=== PATIENT | female | born 1995 | race African-American/Black ===

== ENCOUNTER 2020-04-01 11:58 | Observation (INO) ==
[2020-04-01 12:58] LABS: Basophils % 0.3 % (0.0-0.8); Eosinophils # 0.1 10*3/uL (0.0-0.87); Eosinophils % 0.7 % (0.00-10.9); Hematocrit 36.1 VOL% (35.7-47.0); Hemoglobin 12.4 GM/DL (12.0-16.0); Immature Granulocytes % 0.3 %; Immature Granulocytes Absolute 0.03 #; Lymphocytes # 2.7 10*3/uL (1.4-4.0); Lymphocytes % 26.1 % (21.3-54.2); Mean Corpuscular HGB Conc 34.3 GM/DL (32-36); Mean Corpuscular Volume 89.1 FL (87-102); Mean Platelet Volume 10.2 FL (9.6-12.0); Monocytes % 8.8 % (1.7-12.7); Neutrophils % 63.8 % (38.7-73.9); Platelet Count 260 T/CUMM (130-400); Red Blood Count 4.05 MC/CUMM (3.8-5.5); Red Cell Distribution Width 11.2 % (9.3-17.3); White Blood Count 10.2 T/CUMM (4-12)
[2020-04-01 13:16] LABS: Calcium 8.6 MG/DL (8.5-10.1)
[2020-04-01 13:17] LABS: Bilirubin,Urine Negative (Negative); Blood, Urine Small mg/dL (Negative); Glucose,Urine (UA) >=500 mg/dL (Negative); Hyaline Casts,Urine 4 /LPF (0-3); Ketones,Urine Negative (Negative); Mucus,Urine Occasional /LPF (Occasional); Nitrite,Urine Negative (Negative); Protein,Urine >=500 MG/DL; RBC,Urine 32 /HPF (0-4); Squamous Epithelial Cell,Urine Occasional /HPF (0-10); Urine Appearance CLEAR (Clear); Urine Color Yellow (Yellow); Urine Specific Gravity 1.027 (1.001-1.035); Urine Urobilinogen < 2.0 EU/DL (0.2-1.0); WBC,Urine 4 /HPF (0-6)
[2020-04-01] MEDS ORDERED: SODIUM CHLORIDE 0.9% 1,000 ML IV STA (13:31)
[2020-04-01] MEDS ORDERED: INSULIN REGULAR 100 UNIT/ML IV ONE (13:32)
[2020-04-01] MEDS ORDERED: HYDROmorphone 2 MG/1 ML VIAL ONE (14:58)
[2020-04-01] MEDS ORDERED: ONDANSETRON 4 MG/2 ML VIAL ONE (14:58)
[2020-04-01] MEDS ORDERED: HYDROmorphone 2 MG/1 ML VIAL IV STA (14:59)
[2020-04-01] MEDS ORDERED: ONDANSETRON 4 MG/2 ML VIAL IV STA (14:59)
[2020-04-01] MEDS ORDERED: ACETAMINOPHEN 325 MG TABLET PO PRN (15:23)
[2020-04-01] MEDS ORDERED: GLUCAGON 1 MG VIAL IM PRN ×2 (15:23→17:11)
[2020-04-01] MEDS ORDERED: DEXTROSE 50% 25 GM/50 ML VIAL IV PRN ×2 (15:23→17:11)
[2020-04-01] MEDS ORDERED: KETOROLAC 15 MG/1 ML VIAL IV PRN (15:23)
[2020-04-01] MEDS ORDERED: ONDANSETRON 4 MG/2 ML VIAL IV PRN (15:23)
[2020-04-01] MEDS ORDERED: MAGNESIUM SULF RIDER 2 GM in PREMIX 1 EACH IV ONE (16:50)
[2020-04-01] MEDS: LACTATED RINGERS 1,000 ML IV SCH (17:35)
[2020-04-01] MEDS: INSULIN REGULAR 100 UNIT/ML SUBCUT SCH ×2 (17:35→22:27)
[2020-04-01] MEDS: SODIUM CHLORIDE 0.9% 1,000 ML IV SCH (17:49)
[2020-04-01] MEDS ORDERED: INSULIN LISPRO 100 UNIT/ML SUBCUT SCH (18:00)
[2020-04-01] MEDS ORDERED: INSULIN GLARGINE 100 UNIT/ML SUBCUT SCH (21:00)
[2020-04-01] MEDS: VANCOMYCIN INJ 1,000 MG in SODIUM CHLORIDE 0.9% 250 ML IV SCH (22:24)
[2020-04-01] MEDS: MORPHINE 4 MG/1 ML VIAL IV PRN (22:29)
[2020-04-02] MEDS ORDERED: MAGNESIUM SULF RIDER 4 GM in PREMIX 1 EACH IV PRN
[2020-04-02] MEDS ORDERED: MAGNESIUM SULF RIDER 2 GM in PREMIX 1 EACH IV PRN
[2020-04-02 05:41] LABS: Basophils % 0.4 % (0.0-0.8); Eosinophils # 0.1 10*3/uL (0.0-0.87); Eosinophils % 1.1 % (0.00-10.9); Hematocrit 34.3 VOL% (35.7-47.0); Hemoglobin 11.6 GM/DL (12.0-16.0); Immature Granulocytes % 0.1 %; Immature Granulocytes Absolute 0.01 #; Lymphocytes # 2.6 10*3/uL (1.4-4.0); Lymphocytes % 26.9 % (21.3-54.2); Mean Corpuscular HGB Conc 33.8 GM/DL (32-36); Mean Corpuscular Volume 88.6 FL (87-102); Mean Platelet Volume 10.6 FL (9.6-12.0); Monocytes % 9.8 % (1.7-12.7); Neutrophils % 61.7 % (38.7-73.9); Platelet Count 237 T/CUMM (130-400); Red Blood Count 3.87 MC/CUMM (3.8-5.5); White Blood Count 9.7 T/CUMM (4-12)
[2020-04-02 05:48] LABS: Calcium 8.1 MG/DL (8.5-10.1); Osmolality,Calculated 279.8 MOS/KG (273-304)
[2020-04-02 06:39] LABS: Calcium 8.1 MG/DL (8.5-10.1); Osmolality,Calculated 276.1 MOS/KG (273-304)
[2020-04-02] MEDS ORDERED: INSULIN GLARGINE 100 UNIT/ML SUBCUT SCH (07:41)
[2020-04-02] MEDS ORDERED: LIDOCAINE 1%/EPI INJ 20 ML VIAL ONE (10:33)
[2020-04-02] MEDS ORDERED: BUPIVACAINE MPF 0.25% 30 ML VIAL ONE (10:33)
[2020-04-02] MEDS ORDERED: fentaNYL 100 MCG/2 ML VIAL ONE (11:45)
[2020-04-02] MEDS ORDERED: propofoL 200 MG/20 ML VIAL IV ONE (11:45)
[2020-04-02] MEDS ORDERED: SEVOFLURANE 1 UNIT/15 MINUTE INH ONE (11:45)
[2020-04-02] MEDS ORDERED: MIDAZOLAM 2 MG/2 ML VIAL ONE (11:45)
[2020-04-02] MEDS ORDERED: LIDOCAINE 2% 5 ML VIAL ONE (11:45)
[2020-04-02] MEDS ORDERED: ACETAMINOPHEN 1,000 MG/100 ML VIAL IV ONE (11:46)
[2020-04-02] MEDS ORDERED: SODIUM CHLORIDE 0.9% 500 ML IV ONE (11:46)
[2020-04-02] MEDS ORDERED: ONDANSETRON 4 MG/2 ML VIAL ONE (11:46)
[2020-04-02] MEDS ORDERED: ONDANSETRON 4 MG/2 ML VIAL IV PRN (12:09)
[2020-04-02] MEDS: HYDROmorphone 2 MG/1 ML VIAL IV PRN ×2 (12:12→12:20)
[2020-04-02] MEDS ORDERED: diphenhydrAMINE CAP 25 MG CAPSULE PO ONE (13:00)
[2020-04-02] MEDS: INSULIN REGULAR 100 UNIT/ML SUBCUT SCH ×4 (14:11→21:39)
[2020-04-02] MEDS: ENOXAPARIN 40 MG/0.4 ML SYRINGE SUBCUT SCH (14:12)
[2020-04-02] MEDS: PANTOPRAZOLE 40 MG TABLET PO SCH (14:13)
[2020-04-02] MEDS: VANCOMYCIN INJ 1,000 MG in SODIUM CHLORIDE 0.9% 250 ML IV SCH ×2 (14:19→20:48)
[2020-04-02] MEDS: SODIUM CHLORIDE 0.9% 1,000 ML IV SCH ×2 (15:13→15:14)
[2020-04-02] MEDS: PIPERACILLIN/TAZOBACTAM 3,375 MG in SODIUM CHLORIDE 0.9% 100 ML IV SCH ×2 (15:14→23:30)
[2020-04-02] MEDS: LACTATED RINGERS 1,000 ML IV SCH ×3 (16:27→16:33)
[2020-04-02] MEDS: INSULIN GLARGINE 100 UNIT/ML SUBCUT SCH (21:39)
[2020-04-03 06:04] LABS: Basophils % 0.4 % (0.0-0.8); Eosinophils # 0.1 10*3/uL (0.0-0.87); Eosinophils % 1.5 % (0.00-10.9); Hemoglobin 11.8 GM/DL (12.0-16.0); Immature Granulocytes % 0.2 %; Immature Granulocytes Absolute 0.02 #; Lymphocytes # 3.6 10*3/uL (1.4-4.0); Lymphocytes % 39.8 % (21.3-54.2); Mean Corpuscular HGB Conc 33.7 GM/DL (32-36); Mean Corpuscular Volume 90.7 FL (87-102); Mean Platelet Volume 10.1 FL (9.6-12.0); Monocytes % 7.6 % (1.7-12.7); Neutrophils % 50.5 % (38.7-73.9); Platelet Count 276 T/CUMM (130-400); Red Blood Count 3.86 MC/CUMM (3.8-5.5); Red Cell Distribution Width 11.1 % (9.3-17.3); White Blood Count 9.1 T/CUMM (4-12)
[2020-04-03 06:34] LABS: Calcium 8.2 MG/DL (8.5-10.1); Osmolality,Calculated 279.7 MOS/KG (273-304)
[2020-04-03] MEDS: SODIUM CHLORIDE 0.9% 1,000 ML IV SCH (06:37)
[2020-04-03] MEDS: LACTATED RINGERS 1,000 ML IV SCH (06:40)
[2020-04-03] MEDS: MORPHINE 4 MG/1 ML VIAL IV PRN (07:02)
[2020-04-03] MEDS ORDERED: POTASSIUM CHLORIDE 20 MEQ TABLET PO ONE (08:00)
[2020-04-03] MEDS ORDERED: SULFAMETHOX/TRIMETHOPRIM 800-160 MG TABLET PO SCH (09:00)
[2020-04-03] MEDS: ENOXAPARIN 40 MG/0.4 ML SYRINGE SUBCUT SCH (10:34)
[2020-04-03] MEDS: INSULIN GLARGINE 100 UNIT/ML SUBCUT SCH (10:35)
[2020-04-03] MEDS: PANTOPRAZOLE 40 MG TABLET PO SCH (10:35)
[2020-04-03 11:36] VITALS: BP 156/100
[2020-04-03] MEDS: INSULIN REGULAR 100 UNIT/ML SUBCUT SCH (13:54)
== END 2020-04-03 15:42 | disposition home health service (06) ==
LOC: N.ED 11:58 → N.EDINP 11:58 → N.3E 16:45
PROVIDERS: ADMIT Surgery; ATTEND Surgery

== ENCOUNTER 2022-04-24 15:17 | Inpatient (IN) ==
[2022-04-24 20:07] LABS: Basophils # 0.1 10*3/uL (0.0-0.2); Basophils % 0.5 % (0.0-0.8); Eosinophils # 0.3 10*3/uL (0.0-0.87); Hemoglobin 7.7 GM/DL (12.0-16.0); Immature Granulocytes % 0.3 %; Immature Granulocytes Absolute 0.03 #; Lymphocytes # 3.6 10*3/uL (1.4-4.0); Lymphocytes % 34.3 % (21.3-54.2); Mean Corpuscular HGB Conc 32.1 GM/DL (32-36); Mean Corpuscular Volume 91.6 FL (87-102); Mean Platelet Volume 9.8 FL (9.6-12.0); Monocytes # 0.8 10*3/uL (0.11-0.8); Monocytes % 7.6 % (1.7-12.7); Neutrophils % 54.3 % (38.7-73.9); Platelet Count 239 T/CUMM (130-400); Red Blood Count 2.62 MC/CUMM (3.8-5.5); Red Cell Distribution Width 13.8 % (9.3-17.3); White Blood Count 10.5 T/CUMM (4-12)
[2022-04-24 20:09] LABS: Bilirubin,Urine Negative (Negative); Blood, Urine Moderate mg/dL (Negative); Glucose,Urine (UA) Negative (Negative); Ketones,Urine Negative (Negative); Nitrite,Urine Negative (Negative); Protein,Urine >=300 mg/dL (Negative); Urine Appearance Clear (Clear); Urine Color Yellow (Yellow); Urine Urobilinogen 0.2 eU/dL (<2.0)
[2022-04-24 20:12] LABS: Amorphous Crystals,Urine Occasional /HPF (Few); Bacteria,Urine Occasional /HPF (Few); RBC,Urine 7 /HPF (0-4); Squamous Epithelial Cell,Urine Occasional /HPF (0-10)
[2022-04-24 20:28] LABS: Alanine Aminotransferase 32 U/L (13-56); Albumin 2.4 G/DL (3.4-5.0); Alkaline Phosphatase 93 U/L (45-117); Amylase 61 U/L (25-115); Aspartate Amino Transferase 34 U/L (0-37); Bilirubin,Total < 0.39 MG/DL (0.20-1.00); Blood Urea Nitrogen 57 MG/DL (7-18); Calcium 7.2 MG/DL (8.5-10.1); Carbon Dioxide 18 MMOL/L (21-32); Chloride 115 MMOL/L (98-107); Glucose 76 MG/DL (74-106); Osmolality,Calculated 297.1 MOS/KG (273-304); Potassium 4.8 MMOL/L (3.5-5.1); Sodium 142 MMOL/L (136-145); Total Protein 6.1 G/DL (6.4-8.2)
[2022-04-24 20:30] LABS: Barbiturates Screen,Urine Negative (Negative); Benzodiazepines Screen,Urine Negative (Negative); Cannabinoid Screen,Urine Negative (Negative); Opiate Screen,Urine Positive (Negative); Phencyclidine Screen,Urine Negative (Negative)
[2022-04-24] MEDS ORDERED: LABETALOL 100 MG/20 ML VIAL IV STA (21:00)
[2022-04-24] MEDS ORDERED: MORPHINE 2 MG/1 ML SYRINGE IV STA (21:15)
[2022-04-24] MEDS ORDERED: PROMETHAZINE 25 MG/1 ML VIAL IM PRN (23:24)
[2022-04-24] MEDS ORDERED: ACETAMINOPHEN 325 MG TABLET PO PRN (23:24)
[2022-04-24] MEDS: SODIUM CHLORIDE 0.9% 1,000 ML IV SCH (23:45)
[2022-04-24] MEDS: ONDANSETRON 4 MG/2 ML VIAL IV PRN (23:45)
[2022-04-24] MEDS: MORPHINE 2 MG/1 ML SYRINGE IV PRN (23:45)
[2022-04-25 06:01] LABS: Basophils % 0.4 % (0.0-0.8); Eosinophils # 0.2 10*3/uL (0.0-0.87); Eosinophils % 2.1 % (0.00-10.9); Hematocrit 22.6 VOL% (35.7-47.0); Hemoglobin 7.1 GM/DL (12.0-16.0); Immature Granulocytes % 0.4 %; Immature Granulocytes Absolute 0.04 #; Lymphocytes # 3.1 10*3/uL (1.4-4.0); Lymphocytes % 34.2 % (21.3-54.2); Mean Corpuscular HGB Conc 31.4 GM/DL (32-36); Mean Corpuscular Volume 93.4 FL (87-102); Mean Platelet Volume 9.9 FL (9.6-12.0); Monocytes # 0.6 10*3/uL (0.11-0.8); Monocytes % 6.2 % (1.7-12.7); Neutrophils % 56.7 % (38.7-73.9); Platelet Count 209 T/CUMM (130-400); Red Blood Count 2.42 MC/CUMM (3.8-5.5); Red Cell Distribution Width 13.7 % (9.3-17.3); White Blood Count 9.2 T/CUMM (4-12)
[2022-04-25 06:24] LABS: Calcium 7.1 MG/DL (8.5-10.1); Potassium 5.1 MMOL/L (3.5-5.1)
[2022-04-25] MEDS: SODIUM CHLORIDE 0.9% 1,000 ML IV SCH ×2 (08:08→16:20)
[2022-04-25] MEDS: PANTOPRAZOLE 40 MG TABLET PO SCH (09:29)
[2022-04-25] MEDS: DOCUSATE SODIUM 100 MG CAPSULE PO SCH ×2 (09:29→21:15)
[2022-04-25] MEDS ORDERED: SODIUM CHLORIDE 0.9% 1,000 ML IV PRN (09:36)
[2022-04-25] MEDS: traMADol 50 MG TABLET PO PRN ×2 (10:51→16:30)
[2022-04-25] MEDS ORDERED: amLODIPine 5 MG TABLET PO SCH (11:00)
[2022-04-25] MEDS ORDERED: POLYETHYLENE GLYCOL POWDER 17 GM PACK PO PRN (11:00)
[2022-04-25] MEDS ORDERED: FUROSEMIDE 40 MG/4 ML VIAL IV ONE (18:36)
[2022-04-25] MEDS: POLYETHYLENE GLYCOL POWDER 17 GM PACK PO SCH (21:15)
[2022-04-25] MEDS: METOPROLOL TARTRATE 25 MG TABLET PO SCH (21:15)
[2022-04-26] MEDS: SODIUM CHLORIDE 0.9% 1,000 ML IV SCH ×4 (00:18→23:53)
[2022-04-26] MEDS: traMADol 50 MG TABLET PO PRN ×2 (04:59→20:44)
[2022-04-26 05:33] LABS: Basophils # 0.1 10*3/uL (0.0-0.2); Basophils % 0.6 % (0.0-0.8); Eosinophils # 0.2 10*3/uL (0.0-0.87); Eosinophils % 2.5 % (0.00-10.9); Hematocrit 24.4 VOL% (35.7-47.0); Hemoglobin 7.8 GM/DL (12.0-16.0); Immature Granulocytes % 0.5 %; Immature Granulocytes Absolute 0.04 #; Lymphocytes # 3.1 10*3/uL (1.4-4.0); Lymphocytes % 35.3 % (21.3-54.2); Mean Corpuscular Volume 90.7 FL (87-102); Mean Platelet Volume 10.3 FL (9.6-12.0); Monocytes # 0.7 10*3/uL (0.11-0.8); Monocytes % 8.6 % (1.7-12.7); Neutrophils % 52.5 % (38.7-73.9); Platelet Count 227 T/CUMM (130-400); Red Blood Count 2.69 MC/CUMM (3.8-5.5); Red Cell Distribution Width 15.2 % (9.3-17.3); White Blood Count 8.6 T/CUMM (4-12)
[2022-04-26 05:57] LABS: Alanine Aminotransferase 51 U/L (13-56); Alkaline Phosphatase 95 U/L (45-117); Aspartate Amino Transferase 57 U/L (0-37); Bilirubin,Total < 0.39 MG/DL (0.20-1.00); Blood Urea Nitrogen 55 MG/DL (7-18); Calcium 6.8 MG/DL (8.5-10.1); Carbon Dioxide 17 MMOL/L (21-32); Chloride 115 MMOL/L (98-107); Glucose 86 MG/DL (74-106); Osmolality,Calculated 292.4 MOS/KG (273-304); Phosphorous 6.9 MG/DL (2.5-4.9); Sodium 140 MMOL/L (136-145); Total Protein 5.5 G/DL (6.4-8.2)
[2022-04-26] MEDS: METOPROLOL TARTRATE 25 MG TABLET PO SCH ×2 (09:15→20:42)
[2022-04-26] MEDS: DOCUSATE SODIUM 100 MG CAPSULE PO SCH ×2 (09:15→20:42)
[2022-04-26] MEDS: amLODIPine 5 MG TABLET PO SCH (09:15)
[2022-04-26] MEDS: PANTOPRAZOLE 40 MG TABLET PO SCH (09:16)
[2022-04-26] MEDS: POLYETHYLENE GLYCOL POWDER 17 GM PACK PO SCH ×2 (09:16→20:42)
[2022-04-26] MEDS: MORPHINE 2 MG/1 ML SYRINGE IV PRN ×2 (09:40→15:35)
[2022-04-26 11:07] LABS: Alanine Aminotransferase 54 U/L (13-56); Alkaline Phosphatase 98 U/L (45-117); Aspartate Amino Transferase 55 U/L (0-37); Bilirubin,Direct < 0.100 MG/DL (0.0-0.20); Bilirubin,Indirect 0.3 MG/DL (0.0-1.0); Bilirubin,Total < 0.39 MG/DL (0.20-1.00); Total Protein 5.3 G/DL (6.4-8.2)
[2022-04-26] MEDS ORDERED: CLINDAMYCIN INJ 900 MG/50 ML PREMIX IV ONE (11:27)
[2022-04-26] MEDS ORDERED: BUPIVACAINE MPF 0.25% 10 ML VIAL ONE (11:49)
[2022-04-26] MEDS ORDERED: LIDOCAINE 1% 5 ML VIAL ONE (11:49)
[2022-04-26] MEDS ORDERED: HEPARIN 5,000 UNIT/1 ML VIAL ONE (11:49)
[2022-04-26] MEDS ORDERED: LIDOCAINE 2% 5 ML VIAL ONE (11:59)
[2022-04-26] MEDS ORDERED: propofoL 200 MG/20 ML VIAL IV ONE (11:59)
[2022-04-26] MEDS ORDERED: MIDAZOLAM 2 MG/2 ML VIAL ONE (11:59)
[2022-04-26] MEDS ORDERED: fentaNYL 100 MCG/2 ML VIAL ONE (11:59)
[2022-04-26 12:29] LABS: Hepatitis B Core IgM Quant 0.05 Index; Hepatitis B Surface Ag Quant < 0.10 Index; Hepatitis B Surface Ag Result Non-Reactive (NonReactive); Hepatitis C Virus Ab Quant < 0.02 Index; Hepatitis C Virus Ab Result Non-Reactive (NonReactive)
[2022-04-26] MEDS ORDERED: HEPARIN 10,000 UNIT/10 ML VIAL IV SCH (16:30)
[2022-04-26] MEDS: hydrALAZINE 25 MG TABLET PO SCH ×2 (17:00→20:42)
[2022-04-26] MEDS: diphenhydrAMINE CAP 25 MG CAPSULE PO PRN (18:23)
[2022-04-27] MEDS ORDERED: MAGNESIUM HYDROXIDE SUSP 30 ML UDCUP PO PRN (00:26)
[2022-04-27 05:48] LABS: Basophils # 0.1 10*3/uL (0.0-0.2); Basophils % 0.6 % (0.0-0.8); Eosinophils # 0.3 10*3/uL (0.0-0.87); Eosinophils % 2.3 % (0.00-10.9); Hematocrit 29.1 VOL% (35.7-47.0); Hemoglobin 9.5 GM/DL (12.0-16.0); Immature Granulocytes % 0.4 %; Immature Granulocytes Absolute 0.04 #; Lymphocytes # 2.3 10*3/uL (1.4-4.0); Lymphocytes % 21.4 % (21.3-54.2); Mean Corpuscular HGB Conc 32.6 GM/DL (32-36); Mean Corpuscular Volume 86.4 FL (87-102); Mean Platelet Volume 9.9 FL (9.6-12.0); Monocytes # 0.7 10*3/uL (0.11-0.8); Monocytes % 6.9 % (1.7-12.7); Neutrophils % 68.4 % (38.7-73.9); Platelet Count 240 T/CUMM (130-400); Red Blood Count 3.37 MC/CUMM (3.8-5.5); White Blood Count 10.8 T/CUMM (4-12)
[2022-04-27 06:02] LABS: Alanine Aminotransferase 44 U/L (13-56); Alkaline Phosphatase 104 U/L (45-117); Aspartate Amino Transferase 32 U/L (0-37); Bilirubin,Total < 0.39 MG/DL (0.20-1.00); Blood Urea Nitrogen 31 MG/DL (7-18); Calcium 7.1 MG/DL (8.5-10.1); Carbon Dioxide 24 MMOL/L (21-32); Chloride 109 MMOL/L (98-107); Glucose 143 MG/DL (74-106); Osmolality,Calculated 287.4 MOS/KG (273-304); Sodium 140 MMOL/L (136-145); Total Protein 5.6 G/DL (6.4-8.2)
[2022-04-27] MEDS: METOPROLOL TARTRATE 25 MG TABLET PO SCH ×2 (09:05→21:12)
[2022-04-27] MEDS: DOCUSATE SODIUM 100 MG CAPSULE PO SCH ×2 (09:05→21:12)
[2022-04-27] MEDS: POLYETHYLENE GLYCOL POWDER 17 GM PACK PO SCH ×2 (09:05→21:12)
[2022-04-27] MEDS: PANTOPRAZOLE 40 MG TABLET PO SCH (09:05)
[2022-04-27] MEDS: hydrALAZINE 25 MG TABLET PO SCH ×2 (09:05→21:12)
[2022-04-27] MEDS: amLODIPine 5 MG TABLET PO SCH (09:05)
[2022-04-27] MEDS: traMADol 50 MG TABLET PO PRN (21:18)
[2022-04-28 06:44] LABS: Basophils # 0.1 10*3/uL (0.0-0.2); Basophils % 0.6 % (0.0-0.8); Eosinophils # 0.3 10*3/uL (0.0-0.87); Eosinophils % 2.4 % (0.00-10.9); Hematocrit 29.2 VOL% (35.7-47.0); Hemoglobin 9.6 GM/DL (12.0-16.0); Immature Granulocytes % 0.2 %; Immature Granulocytes Absolute 0.02 #; Lymphocytes # 3.5 10*3/uL (1.4-4.0); Mean Corpuscular HGB Conc 32.9 GM/DL (32-36); Mean Corpuscular Volume 86.9 FL (87-102); Mean Platelet Volume 9.4 FL (9.6-12.0); Monocytes # 0.8 10*3/uL (0.11-0.8); Monocytes % 7.8 % (1.7-12.7); Platelet Count 250 T/CUMM (130-400); Red Blood Count 3.36 MC/CUMM (3.8-5.5); Red Cell Distribution Width 14.8 % (9.3-17.3); White Blood Count 10.7 T/CUMM (4-12)
[2022-04-28 07:15] LABS: Alanine Aminotransferase 39 U/L (13-56); Alkaline Phosphatase 94 U/L (45-117); Aspartate Amino Transferase 29 U/L (0-37); Bilirubin,Total < 0.39 MG/DL (0.20-1.00); Blood Urea Nitrogen 24 MG/DL (7-18); Calcium 7.2 MG/DL (8.5-10.1); Carbon Dioxide 26 MMOL/L (21-32); Chloride 107 MMOL/L (98-107); Glucose 118 MG/DL (74-106); Osmolality,Calculated 283.4 MOS/KG (273-304); Potassium 3.5 MMOL/L (3.5-5.1); Sodium 140 MMOL/L (136-145); Total Protein 5.7 G/DL (6.4-8.2)
[2022-04-28] MEDS: DOCUSATE SODIUM 100 MG CAPSULE PO SCH ×2 (09:51→20:16)
[2022-04-28] MEDS: hydrALAZINE 25 MG TABLET PO SCH ×2 (09:51→20:16)
[2022-04-28] MEDS: METOPROLOL TARTRATE 25 MG TABLET PO SCH ×2 (09:51→20:16)
[2022-04-28] MEDS: traMADol 50 MG TABLET PO PRN (09:51)
[2022-04-28] MEDS: amLODIPine 5 MG TABLET PO SCH (09:51)
[2022-04-28] MEDS: POLYETHYLENE GLYCOL POWDER 17 GM PACK PO SCH ×2 (09:52→20:16)
[2022-04-28] MEDS: PANTOPRAZOLE 40 MG TABLET PO SCH (09:52)
[2022-04-28] MEDS: hydrALAZINE 20 MG/1 ML VIAL IV PRN (13:10)
[2022-04-28] MEDS: diphenhydrAMINE CAP 25 MG CAPSULE PO PRN (20:16)
[2022-04-29 07:59] LABS: Basophils # 0.1 10*3/uL (0.0-0.2); Basophils % 0.6 % (0.0-0.8); Eosinophils # 0.3 10*3/uL (0.0-0.87); Eosinophils % 3.2 % (0.00-10.9); Hematocrit 30.9 VOL% (35.7-47.0); Hemoglobin 10.1 GM/DL (12.0-16.0); Immature Granulocytes % 0.4 %; Immature Granulocytes Absolute 0.04 #; Lymphocytes # 3.2 10*3/uL (1.4-4.0); Lymphocytes % 32.2 % (21.3-54.2); Mean Corpuscular HGB Conc 32.7 GM/DL (32-36); Mean Corpuscular Volume 86.8 FL (87-102); Mean Platelet Volume 10.1 FL (9.6-12.0); Monocytes # 0.8 10*3/uL (0.11-0.8); Monocytes % 8.2 % (1.7-12.7); Neutrophils % 55.4 % (38.7-73.9); Platelet Count 307 T/CUMM (130-400); Red Blood Count 3.56 MC/CUMM (3.8-5.5); Red Cell Distribution Width 14.8 % (9.3-17.3); White Blood Count 9.9 T/CUMM (4-12)
[2022-04-29 08:23] LABS: Alanine Aminotransferase 43 U/L (13-56); Albumin 2.2 G/DL (3.4-5.0); Alkaline Phosphatase 102 U/L (45-117); Aspartate Amino Transferase 34 U/L (0-37); Bilirubin,Total < 0.39 MG/DL (0.20-1.00); Blood Urea Nitrogen 27 MG/DL (7-18); Calcium 7.6 MG/DL (8.5-10.1); Carbon Dioxide 25 MMOL/L (21-32); Chloride 110 MMOL/L (98-107); Glucose 103 MG/DL (74-106); Osmolality,Calculated 287.1 MOS/KG (273-304); Potassium 4.2 MMOL/L (3.5-5.1); Sodium 142 MMOL/L (136-145); Total Protein 5.5 G/DL (6.4-8.2)
[2022-04-29] MEDS: PANTOPRAZOLE 40 MG TABLET PO SCH (09:26)
[2022-04-29] MEDS: DOCUSATE SODIUM 100 MG CAPSULE PO SCH ×2 (09:26→20:28)
[2022-04-29] MEDS: amLODIPine 5 MG TABLET PO SCH (09:26)
[2022-04-29] MEDS: hydrALAZINE 20 MG/1 ML VIAL IV PRN (09:27)
[2022-04-29] MEDS: POLYETHYLENE GLYCOL POWDER 17 GM PACK PO SCH ×2 (13:07→20:29)
[2022-04-29] MEDS: METOPROLOL TARTRATE 25 MG TABLET PO SCH ×2 (13:07→20:29)
[2022-04-29] MEDS: hydrALAZINE 25 MG TABLET PO SCH ×2 (13:07→20:29)
[2022-04-29] MEDS: diphenhydrAMINE CAP 25 MG CAPSULE PO PRN (20:28)
[2022-04-30] MEDS: traMADol 50 MG TABLET PO PRN ×2 (00:55→19:59)
[2022-04-30 08:10] LABS: Basophils # 0.1 10*3/uL (0.0-0.2); Basophils % 0.5 % (0.0-0.8); Eosinophils # 0.3 10*3/uL (0.0-0.87); Eosinophils % 2.3 % (0.00-10.9); Hematocrit 29.2 VOL% (35.7-47.0); Hemoglobin 9.5 GM/DL (12.0-16.0); Immature Granulocytes % 0.4 %; Immature Granulocytes Absolute 0.04 #; Lymphocytes # 3.1 10*3/uL (1.4-4.0); Lymphocytes % 28.3 % (21.3-54.2); Mean Corpuscular HGB Conc 32.5 GM/DL (32-36); Mean Corpuscular Volume 87.7 FL (87-102); Mean Platelet Volume 9.9 FL (9.6-12.0); Monocytes % 8.7 % (1.7-12.7); Neutrophils % 59.8 % (38.7-73.9); Platelet Count 282 T/CUMM (130-400); Red Blood Count 3.33 MC/CUMM (3.8-5.5); Red Cell Distribution Width 14.9 % (9.3-17.3); White Blood Count 10.9 T/CUMM (4-12)
[2022-04-30] MEDS: DOCUSATE SODIUM 100 MG CAPSULE PO SCH ×2 (08:36→21:03)
[2022-04-30] MEDS: PANTOPRAZOLE 40 MG TABLET PO SCH (08:36)
[2022-04-30] MEDS: amLODIPine 5 MG TABLET PO SCH (08:36)
[2022-04-30 08:37] LABS: Alanine Aminotransferase 63 U/L (13-56); Albumin 2.1 G/DL (3.4-5.0); Alkaline Phosphatase 94 U/L (45-117); Aspartate Amino Transferase 54 U/L (0-37); Bilirubin,Total < 0.39 MG/DL (0.20-1.00); Blood Urea Nitrogen 25 MG/DL (7-18); Calcium 7.6 MG/DL (8.5-10.1); Carbon Dioxide 26 MMOL/L (21-32); Chloride 110 MMOL/L (98-107); Glucose 159 MG/DL (74-106); Phosphorous 4.2 MG/DL (2.5-4.9); Potassium 4.2 MMOL/L (3.5-5.1); Sodium 143 MMOL/L (136-145); Total Protein 5.2 G/DL (6.4-8.2); Uric Acid 4.1 MG/DL (2.6-6.0)
[2022-04-30] MEDS: POLYETHYLENE GLYCOL POWDER 17 GM PACK PO SCH ×2 (08:37→21:02)
[2022-04-30] MEDS: METOPROLOL TARTRATE 50 MG TABLET PO SCH ×2 (08:37→21:00)
[2022-04-30] MEDS ORDERED: PHENOL 1.4% THROAT SPRAY 177 ML BOTTLE PO PRN (13:47)
[2022-04-30] MEDS: MORPHINE 2 MG/1 ML SYRINGE IV PRN (17:46)
[2022-04-30] MEDS: ONDANSETRON 4 MG/2 ML VIAL IV PRN (17:46)
[2022-04-30] MEDS: HYDROmorphone 1 MG/1 ML SYRINGE IV PRN (22:27)
[2022-04-30] MEDS ORDERED: cloNIDine 0.1 MG TABLET PO SCH (23:30)
[2022-05-01] MEDS: HYDROmorphone 1 MG/1 ML SYRINGE IV PRN ×3 (06:06→16:19)
[2022-05-01] MEDS: PANTOPRAZOLE 40 MG TABLET PO SCH (08:35)
[2022-05-01] MEDS: METOPROLOL TARTRATE 50 MG TABLET PO SCH (08:35)
[2022-05-01] MEDS: amLODIPine 5 MG TABLET PO SCH (08:35)
[2022-05-01] MEDS: DOCUSATE SODIUM 100 MG CAPSULE PO SCH (08:41)
[2022-05-01] MEDS: POLYETHYLENE GLYCOL POWDER 17 GM PACK PO SCH (08:42)
[2022-05-01 10:28] LABS: Basophils # 0.1 10*3/uL (0.0-0.2); Basophils % 0.4 % (0.0-0.8); Eosinophils # 0.3 10*3/uL (0.0-0.87); Eosinophils % 1.9 % (0.00-10.9); Hematocrit 30.8 VOL% (35.7-47.0); Hemoglobin 9.8 GM/DL (12.0-16.0); Immature Granulocytes % 0.5 %; Immature Granulocytes Absolute 0.07 #; Lymphocytes % 22.4 % (21.3-54.2); Mean Corpuscular HGB Conc 31.8 GM/DL (32-36); Mean Corpuscular Volume 90.6 FL (87-102); Mean Platelet Volume 9.3 FL (9.6-12.0); Monocytes # 1.1 10*3/uL (0.11-0.8); Monocytes % 8.6 % (1.7-12.7); Neutrophils % 66.2 % (38.7-73.9); Platelet Count 271 T/CUMM (130-400); Red Cell Distribution Width 14.7 % (9.3-17.3); White Blood Count 13.2 T/CUMM (4-12)
[2022-05-01 10:46] LABS: Calcium 8.3 MG/DL (8.5-10.1); Osmolality,Calculated 285.7 MOS/KG (273-304); Potassium 4.2 MMOL/L (3.5-5.1)
[2022-05-01] MEDS: diphenhydrAMINE CAP 25 MG CAPSULE PO PRN (13:20)
[2022-05-01] MEDS: hydrALAZINE 20 MG/1 ML VIAL IV PRN (16:18)
[2022-05-01 16:22] VITALS: BP 171/98
[2022-05-01] MEDS ORDERED: cefTRIAXone 1,000 MG in SODIUM CHLORIDE 0.9% 100 ML IV ONE (16:57)
[2022-05-01] MEDS ORDERED: methylPREDNISolone SOD SUC 40 MG/1 ML VIAL IV ONE (17:39)
== END 2022-05-01 18:29 | disposition home or self-care (01) | DRG 468 ==
LOC: N.ED 15:17 → N.EDINP 21:12 → N.5E 22:49
PROVIDERS: ADMIT Internal Medicine; ATTEND Internal Medicine